=== PATIENT | female | born 1980 | race Caucasian/White ===

== ENCOUNTER 2016-08-27 06:18 | Inpatient (IN) | payer OTHER ==
[~2016-08-27] VITALS: Ht 162.6 cm; Wt 86.6 kg
[2016-08-27] MEDS ORDERED: METOCLOPRAMIDE 10 MG/2 ML VIAL IV PUSH PRN (06:20)
[2016-08-27] MEDS ORDERED: PROCHLORPERAZINE 10 MG/2 ML VIAL IV ONE (06:20)
[2016-08-27] MEDS ORDERED: OXYTOCIN 15 UNITS/250 ML NS 250 ML IV SCH (06:20)
[2016-08-27] MEDS ORDERED: TERBUTALINE 1 MG/ML VIAL SUBQ PRN (06:20)
[2016-08-27] MEDS ORDERED: FAMOTIDINE 20 MG INJ IV PRN (06:20)
[2016-08-27] MEDS ORDERED: ALU/MAG/SIM 30 ML UDC PO PRN (06:20)
[2016-08-27] MEDS ORDERED: BUTORPHANOL 1 MG/ML VIAL IV ONE (06:20)
[2016-08-27] MEDS ORDERED: ACETAMINOPHEN 325 MG TAB PO PRN (06:20)
[2016-08-27] MEDS ORDERED: CEFAZOLIN (LD/OB) 100 ML IV PRN (06:20)
[2016-08-27] MEDS ORDERED: FAMOTIDINE 20 MG TAB PO PRN (06:20)
[2016-08-27 06:40] VITALS: Ht 162.6 cm; Wt 86.6 kg
[2016-08-27] MEDS ORDERED: PHENYLEPHRINE 10 MG/ML VIAL IV ONE (07:48)
[2016-08-27] MEDS ORDERED: OXYTOCIN 10 UNITS/ML VIAL IV ONE (07:48)
[2016-08-27] MEDS: OXYTOCIN 15 UNITS/250 ML NS 250 ML IV SCH (08:19)
[2016-08-27] MEDS: LACT RINGERS 1,000 ML IV SCH ×4 (08:19→22:00)
[2016-08-27] MEDS ORDERED: BUTORPHANOL 1 MG/ML VIAL ONE (15:13)
[2016-08-27] MEDS ORDERED: ROPIV/FENT 0.2%-2MCG/ML 100 ML EPIDURAL ONE (17:42)
[2016-08-27] MEDS ORDERED: FENTANYL 100 MCG/2 ML AMP ONE (17:43)
[2016-08-27] MEDS ORDERED: SODIUM CHLORIDE 0.9% 500 ML IV PRN (18:05)
[2016-08-27] MEDS ORDERED: LACT RINGERS 500 ML IV ONE (18:05)
[2016-08-27] MEDS ORDERED: LACT RINGERS 500 ML IV PRN (18:05)
[2016-08-27] MEDS ORDERED: FENTANYL 100 MCG/2 ML AMP EPIDURAL ONE (18:05)
[2016-08-27] MEDS: ROPIV/FENT 0.2%-2MCG/ML 100 ML EPIDURAL SCH (18:44)
[2016-08-27] MEDS: ONDANSETRON 4 MG VIAL IV PRN (19:47)
[2016-08-27] MEDS: **ONLY ANESTEHSIA MAY ORDER OPIATES WHILE ON EPIDURAL XX SCH (20:00)
[2016-08-28] VITALS (18 sets, daily range): BP systolic 96–109; RESP 15–20; TEMP 97.7–98
[2016-08-28] MEDS: ONDANSETRON 4 MG VIAL IV PRN ×3 (01:41→13:28)
[2016-08-28] MEDS: ROPIV/FENT 0.2%-2MCG/ML 100 ML EPIDURAL SCH ×2 (01:41→11:39)
[2016-08-28] MEDS: LACT RINGERS 1,000 ML IV SCH ×5 (02:00→18:22)
[2016-08-28] MEDS ORDERED: PROCHLORPERAZINE 10 MG/2 ML VIAL IV ONE (02:50)
[2016-08-28] MEDS: **ONLY ANESTEHSIA MAY ORDER OPIATES WHILE ON EPIDURAL XX SCH ×2 (08:00→19:16)
[2016-08-28] MEDS: OXYTOCIN 15 UNITS/250 ML NS 250 ML IV SCH ×3 (09:41→23:05)
[2016-08-28] MEDS ORDERED: PROCHLORPERAZINE 10 MG/2 ML VIAL IV PRN ×2 (10:30→17:15)
[2016-08-28] MEDS ORDERED: SCOPOLAMINE PATCH TRANSDERM ONE (13:30)
[2016-08-28] MEDS ORDERED: LIDOCAINE 1% BUFFERED 1 ML SYR INTRADERM PRN (13:30)
[2016-08-28] MEDS: METHYLERGONOVINE MAL 0.2 MG/ML AMP ONE ×2 (16:20→18:28)
[2016-08-28] MEDS: METHYLERGONOVINE 0.2 MG TAB PO SCH ×2 (16:20→18:00)
[2016-08-28] MEDS ORDERED: PROMETHAZINE 25 MG/ML VIAL IV PRN (16:45)
[2016-08-28] MEDS ORDERED: MEPERIDINE 25 MG/ML IV PRN (16:45)
[2016-08-28] MEDS ORDERED: DILAUDID 1 MG/ML AMP IV PRN (16:45)
[2016-08-28] MEDS ORDERED: MORPHINE 2 MG/ML SYR IV PRN ×2 (16:45)
[2016-08-28] MEDS ORDERED: ONDANSETRON 4 MG VIAL IV PRN ×3 (16:45→17:15)
[2016-08-28] MEDS ORDERED: MORPHINE 4 MG/ML SYR IV PRN ×2 (16:45)
[2016-08-28] MEDS ORDERED: NALOXONE 0.4 MG/ML AMP IV PRN (16:45)
[2016-08-28] MEDS ORDERED: OXYCODONE 5 MG TAB PO PRN (16:45)
[2016-08-28] MEDS ORDERED: SALINE FLUSH 10 ML FLUSH PRN (16:45)
[2016-08-28] MEDS ORDERED: BUTORPHANOL 1 MG/ML VIAL IV PRN (16:45)
[2016-08-28] MEDS ORDERED: DIPHENHYDRAMINE 50 MG/ML VIAL IV PRN (16:45)
[2016-08-28] MEDS ORDERED: LACT RINGERS 1,000 ML IV SCH (17:15)
[2016-08-28] MEDS ORDERED: MEASLES,MUMPS,RUBELLA VAC SUBQ.VACC ONE (17:15)
[2016-08-28] MEDS ORDERED: TDaP 0.5 ML VIAL IM.VACC ONE (17:15)
[2016-08-28] MEDS: KETOROLAC 30 MG/ML VIAL IV SCH (18:31)
[2016-08-28] MEDS: SALINE FLUSH 10 ML FLUSH SCH (19:16)
[2016-08-29] MEDS: KETOROLAC 30 MG/ML VIAL IV SCH ×3 (00:18→12:00)
[2016-08-29] MEDS: LACT RINGERS 1,000 ML IV SCH (00:19)
[2016-08-29] MEDS: METHYLERGONOVINE 0.2 MG TAB PO SCH ×3 (00:19→12:13)
[2016-08-29 01:54] VITALS: BP_SYST 93; RESP 16; TEMP 98.3
[2016-08-29 05:10] VITALS: BP_SYST 89; RESP 16; TEMP 98.4
[2016-08-29] MEDS ORDERED: SODIUM CHLORIDE 0.9% FLUSH BAG 500 ML IV SCH (06:00)
[2016-08-29] MEDS: SALINE FLUSH 10 ML FLUSH SCH (08:00)
[2016-08-29] MEDS: **ONLY ANESTEHSIA MAY ORDER OPIATES WHILE ON EPIDURAL XX SCH (08:00)
[2016-08-29] MEDS ORDERED: OXYCODONE/APAP 5/325 TAB PO PRN (09:15)
[2016-08-29 09:32] VITALS: BP_SYST 89; RESP 14; TEMP 97.8
[2016-08-29] MEDS ORDERED: KETOROLAC 10 MG TAB PO PRN (12:00)
[2016-08-29] MEDS: Ibuprofen 600 MG TAB PO SCH ×3 (12:00→23:44)
[2016-08-29 13:11] VITALS: BP_SYST 101; RESP 16; TEMP 98.1
[2016-08-29] MEDS: MAG HYDROX 30 ML UDC PO SCH ×2 (16:54→23:42)
[2016-08-29 17:53] VITALS: BP_SYST 94; RESP 16; TEMP 99.1
[2016-08-29 18:06] VITALS: TEMP 98.4
[2016-08-30 05:37] VITALS: BP_SYST 106; RESP 18; TEMP 97.9
[2016-08-30] MEDS: MAG HYDROX 30 ML UDC PO SCH ×2 (05:55→16:09)
[2016-08-30] MEDS: Ibuprofen 600 MG TAB PO SCH ×4 (05:56→23:52)
[2016-08-30 10:01] VITALS: BP_SYST 102; TEMP 98
[2016-08-30 10:02] VITALS: RESP 18
[2016-08-30 17:38] VITALS: BP_SYST 110; RESP 18; TEMP 98.6
[2016-08-31] MEDS: Ibuprofen 600 MG TAB PO SCH ×3 (05:40→11:32)
[2016-08-31 05:49] VITALS: BP_SYST 105; RESP 16; TEMP 98.2
[2016-08-31 09:17] VITALS: BP_SYST 114; TEMP 97.9
[2016-08-31 09:18] VITALS: RESP 16
[2016-08-31 09:37] VITALS: BP_SYST 114; RESP 16; TEMP 97.9
[2016-08-31] MEDS ORDERED: REMOVE SCOPALAMINE PATCH XX ONE (13:30)
== END 2016-08-31 12:15 | disposition home or self-care (01) | DRG 766 ==
LOC: LD 06:18 → OB 08-28 19:40
PROVIDERS: ADMIT Obstetrics & Gynecology Reproductive Endocrinology; ATTEND Obstetrics & Gynecology Reproductive Endocrinology
PROC: 3E033VJ Introduction of Other Hormone into Peripheral Vein, Percutaneous Approach (ICD-10-PCS; 2016-08-27)
PROC: 10D00Z1 Extraction of Products of Conception, Low, Open Approach (ICD-10-PCS; principal; 2016-08-28)
PROC: 10907ZC Drainage of Amniotic Fluid, Therapeutic from Products of Conception, Via Natural or Artificial Opening (ICD-10-PCS; 2016-08-28)
DX: O61.0 Failed medical induction of labor (principal); O48.0 Post-term pregnancy; O62.0 Primary inadequate contractions; Z37.0 Single live birth; Z3A.40 40 weeks gestation of pregnancy
CPT/HCPCS: 82803; 85025; 86850; 86900; 86901